=== PATIENT | female | born 1940 | race Caucasian/White ===

== ENCOUNTER 2020-11-30 13:53 | Observation (INO) ==
[2020-11-30] MEDS ORDERED: 0.9 % SODIUM CHLORIDE 1,000 ML IV ONE (14:08)
--- NOTE | 2020-11-30 14:18 | Emergency Department Note ---
Abdominal Pain HPI General Chief Complaint: Abdominal Pain Stated Complaint: Abd pain Time Seen by Provider: 11/30/20 13:55 Source: patient Mode of arrival: ambulatory Limitations: no limitations History of Present Illness HPI Narrative: Narrative: Patient presents emergency department for evaluation of several day history of intermittent epigastric pain that radiates to the lower abdomen. No associated nausea or vomiting. No fever. She states that eating food seems to make it worse. She has prior history of cholelithiasis. Patient states that she is symptomatic to the point where she has stopped eating because she has increased pain after oral intake, she has tried low-fat foods and is still symptomatic with this, this morning when she tried some orange juice she had recurrent pain.No other complaints. Related Data Home Medications Medication Instructions Recorded Confirmed ascorbic acid (vitamin C) 1,000 mg 1 g PO QDAY tab 11/11/18 11/30/20 tablet lisinopril 100 mg PO QAM 11/30/20 11/30/20 metformin 1,000 mg PO QAM 11/30/20 11/30/20 Previous Rx's Medication Instructions Recorded umeclidinium 62.5 mcg-vilanterol 1 inh INHALATION Q24H #180 each 01/24/20 25 mcg/actuation powdr for inhalation ergocalciferol (vitamin D2) 1,250 50,000 unit PO Q2W #6 cap 06/20/20 mcg (50,000 unit) capsule triamterene 37.5 1 cap PO QDAY #90 cap 08/28/20 mg-hydrochlorothiazide 25 mg capsule simvastatin 40 mg tablet 40 mg PO QPM #90 tab 10/25/20 ibandronate 150 mg tablet 150 mg PO QMONTH #3 tab 10/30/20 levothyroxine 100 mcg tablet 100 mcg PO .COMPLEX #90 tab 10/30/20 Allergies Allergy/AdvReac Type Severity Reaction Status Date / Time No Known Drug Intolerances Allergy Unknown Unknown Verified 11/30/20 13:53 Review of Systems ROS ROS Narrative: Narrative: As above, all other systems reviewed and negative. 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 limb, including hip (Chronic) Cholelithiasis (Chronic) History of colonic polyps (Chronic) Gastroesophageal reflux (Chronic) Diverticulitis of colon (Chronic) Hyperlipidemia (Chronic) Abdominal hernia (Chronic) Hypertension, essential (Chronic) Hypothyroidism, acquired (Chronic) Menopausal and postmenopausal disorder (Chronic) Osteopenia (Chronic) Osteoporosis (Chronic) Schatzki's ring (Chronic) Blindness, one eye (Chronic) History of hysterectomy (Chronic) History of esophagogastroduodenoscopy (Chronic 08/17/19) History of (Chronic) Medical History Abdominal hernia Annual physical exam Blindness, one eye right Cholelithiasis COPD (chronic obstructive pulmonary disease) Dermatitis Diabetes mellitus, type II Diverticulitis of colon Gastroesophageal reflux hx of stricture History of colonic polyps Hyperlipidemia Hypertension, essential Hypothyroidism, acquired Medicare annual wellness visit, subsequent Menopausal and postmenopausal disorder NOS Osteopenia Osteoporosis Prediabetes Schatzki's ring esophageal stenosis Squamous cell carcinoma of skin of right lower limb, including hip Tinea corporis Surgical History History of History of colonoscopy (08/16/13) History of esophagogastroduodenoscopy (08/17/19) 03/10/2013 History of hysterectomy 1983 [place] Family History Unknown Atherosclerosis of coronary artery Malignant neoplasm NOS Father Essential hypertension alive at 92 Mother , 60 Leukemia Social History Smoking Status: Former smoker Alcohol Intake Frequency: a few times a month Substance Use: does not use Exam Narrative Narrative: Narrative: Blood pressure 126/76, pulse 99, respirations 16, temperature 97, O2 sat 96%. General Limitations: no limitations Head Head: Present atraumatic and normocephalic Eye Eye: Present normal appearance, PERRL and EOMI ENT ENT: Present normal exam Adbominal Abdominal: Present soft and tenderness (Epigastric and right upper quadrant tenderness to palpation.); Absent distention, guarding and rebound Extremities Extremities: Present normal inspection Neurological Neurological: Present alert, oriented X3 and CN II-XII intact; Absent motor sensory deficit Psychiatric Psychiatric: Present normal affect and normal mood Skin Skin: Present warm (WNL) and dry Course Vital Signs Vital signs: Vital Signs Temperature 97.0 F 11/30/20 13:53 Pulse Rate 99 H 11/30/20 13:53 Respiratory Rate 16 11/30/20 13:53 Blood Pressure 126/76 11/30/20 13:53 Pulse Oximetry (%) 96 11/30/20 13:53 Temperature 97.0 F 11/30/20 13:53 Pulse Rate 79 11/30/20 17:01 Respiratory Rate 16 11/30/20 13:53 Blood Pressure 143/59 11/30/20 17:01 Pulse Oximetry (%) 99 11/30/20 17:01 [facility] MDM Narrative Medical decision making narrative: Narrative:Ultrasound per radiology showed significant cholelithiasis without cholecystitis. I spoke with Dr. Snyder on- call surgeon. Case reviewed in detail over the phone. Surgery offered to admit the patient for cholecystectomy or have the patient follow-up as an outpatient. These options were discussed with the patient and she feels too symptomatic to continue as an outpatient. Discussed findings with the patient. Her questions were answered. She is agreeable with the plan. Lab Data Result diagrams: 11/30/20 14:18 11/30/20 14:18 Labs: Lab Results 11/30/20 11/30/20 11/30/20 Range/Units 14:18 14:18 15:19 WBC 11.3 H (4.5-11.0) K/mcL RBC 5.38 (3.59-5.38) M/mcL Hgb 15.1 (11.2-15.7) g/dL Hct 44.3 (34.1-44.9) % MCV 82.3 (80.0-100.0) fL MCH 28.1 (26.0-34.0) pg MCHC 34.1 (31.0-36.0) g/dL RDW 13.4 (11.5-14.5) % Plt Count 399 (140-440) K/mcL MPV 9.9 (7.4-10.4) fL Neut % (Auto) 67.6 (38.0-78.0) % Lymph % (Auto) 19.9 (15.5-49.0) % Howard % (Auto) 11.7 (1.0-12.0) % Eos % (Auto) 0.4 (0.0-7.0) % Baso % (Auto) 0.4 (0.0-2.0) % Lymph # (Auto) 2.26 (1.50-4.80) K/mcL Howard # (Auto) 1.32 H (0.10-0.90) K/mcL Eos # (Auto) 0.04 (0.00-0.70) K/mcL Baso # (Auto) 0.04 (0.00-0.30) K/mcL Absolute Neutrophils 7.67 (1.80-8.00) K/mcL Sodium 130 L (133-145) mmol/L Potassium 3.8 (3.3-5.1) mmol/L Chloride 96 (96-108) mmol/L Carbon Dioxide 21 L (22-30) mmol/L Anion Gap 13.0 (8.0-16.0) BUN 9 (8-23) mg/dL Creatinine 0.8 (0.6-1.1) mg/dL GFR Calculation 70 Glucose 98 (70-105) mg/dL Calcium 9.9 (8.6-10.4) mg/dL Total Bilirubin 0.6 (0.1-1.0) mg/dL AST 14 (<32) U/L ALT 12 (<40) U/L Alkaline Phosphatase 82 (39-117) U/L Total Protein 7.4 (5.9-8.4) gm/dL Albumin 4.1 (3.2-5.2) gm/dL Globulin 3.3 (2.2-3.7) gm/dL Albumin/Globulin Ratio 1.2 (1.0-2.3) Lipase 23 (7-60) U/L Urine Color Yellow Urine Appearance Clear (Clear) Urine pH 7.0 (5.0-9.0) Ur Specific [place] 1.005 (1.000-1.035) Urine Protein Negative (Negative) mg/dL Urine Glucose (UA) Negative (Negative) mg/dL Urine Ketones 20 A (Negative) mg/dL Urine Occult Blood Negative (Negative) mg/dL Urine Nitrate Negative (Negative) Urine Bilirubin Negative (Negative) mg/dL Urine Urobilinogen Negative mg/dL Ur Leukocyte Esterase 250 A (Negative) /ug Urine RBC < 1 (0-3) /hpf Urine WBC 7 H (0-4) /hpf Ur Squamous Epith Cells 2 (0-4) /hpf Urine Bacteria None (0) /hpf Ur Culture Indicated? No Discharge Plan Patient/Caregiver Discharge Instructions Pt seen by [employer]ER/PA only: No Clinical Impression: Cholelithiasis Patient Disposition: Xfer As Inpt ([facility]) Follow up with: Nik Ferguson MD [Primary Care Provider] - Prescriptions: No Action umeclidinium 62.5 mcg-vilanterol 25 mcg/actuation powdr for inhalation 62.5-25 mcg/actuation blister with device 1 inh INHALATION Q24H Qty: 180 RF: 1 ergocalciferol (vitamin D2) [Vitamin D2] 1,250 mcg (50,000 unit) capsule 50,000 unit PO Q2W Qty: 6 RF: 1 triamterene-hydrochlorothiazid 37.5-25 mg capsule 1 cap PO QDAY Qty: 90 RF: 1 simvastatin [Zocor] 40 mg tablet 40 mg PO QPM Qty: 90 RF: 1 ibandronate [Boniva] 150 mg tablet 150 mg PO QMONTH Qty: 3 RF: 1 levothyroxine [Levoxyl] 100 mcg tablet 100 mcg PO .COMPLEX Qty: 90 RF: 1 ascorbic acid (vitamin C) 1,000 mg tablet 1 g PO QDAY RF: 0 lisinopril 10 mg tablet 100 mg PO QAM RF: 0 metformin 500 mg tablet extended release 24hr 1,000 mg PO QAM RF: 0
[2020-11-30 14:55] LABS: Basophils # (Auto) 0.04 K/mcL (0.00-0.30); Basophils % (Auto) 0.4 % (0.0-2.0); Eosinophils # (Auto) 0.04 K/mcL (0.00-0.70); Eosinophils % (Auto) 0.4 % (0.0-7.0); Hematocrit 44.3 % (34.1-44.9); Hemoglobin 15.1 g/dL (11.2-15.7); Lymphocytes # (Auto) 2.26 K/mcL (1.50-4.80); Lymphocytes % (Auto) 19.9 % (15.5-49.0); Mean Cell Volume 82.3 fL (80.0-100.0); Mean Corpuscular HGB Conc 34.1 g/dL (31.0-36.0); Mean Platelet Volume 9.9 fL (7.4-10.4); Monocytes # (Auto) 1.32 K/mcL (0.10-0.90); Monocytes % (Auto) 11.7 % (1.0-12.0); Neutrophils % (Auto) 67.6 % (38.0-78.0); Platelet Count 399 K/mcL (140-440); RBC 5.38 M/mcL (3.59-5.38); Red Cell Distribution Width 13.4 % (11.5-14.5); WBC 11.3 K/mcL (4.5-11.0)
[2020-11-30 15:15] LABS: ALT/SGPT 12 U/L (<40); AST/SGOT 14 U/L (<32); Albumin 4.1 gm/dL (3.2-5.2); Albumin/Globulin Ratio 1.2 (1.0-2.3); Alkaline Phosphatase 82 U/L (39-117); Bilirubin,Total 0.6 mg/dL (0.1-1.0); Blood Urea Nitrogen 9 mg/dL (8-23); Calcium 9.9 mg/dL (8.6-10.4); Carbon Dioxide 21 mmol/L (22-30); Chloride 96 mmol/L (96-108); Globulin 3.3 gm/dL (2.2-3.7); Glomerular Filtration Rate 70; Glucose 98 mg/dL (70-105)
--- NOTE | 2020-11-30 16:00 | Ultrasound Report ---
CLINICAL INFORMATION: epigastric and RUQ abd pain COMPARISON: None. FINDINGS: The liver is normal in size and echotexture. There is a 6 mm cyst in the right hepatic lobe otherwise no other focal hepatic lesions. Gallbladder is packed with stones. The gallbladder wall is normal in thickness. The common bile duct normal at 4 mm. Pancreas unremarkable. No free fluid IMPRESSION: Multiple stones packing the gallbladder. No evidence of cholecystitis. Common bile duct normal. Interpreted and Authenticated by: Kade Gillette 11/30/20
[2020-11-30 16:05] LABS: Appearance,Urine CLEAR (Clear); Bilirubin,Urine Negative (Negative); Color,Urine YELLOW; Culture Indicated,Urine No; Glucose,Urine (UA) Negative (Negative); Ketones,Urine 20 mg/dL (Negative); Leukocyte Esterase,Urine 250 /ug (Negative); Nitrate,Urine Negative (Negative); Protein,Urine Negative (Negative); Specific Gravity,Urine 1.005 (1.000-1.035); Urine Blood Negative (Negative); Urine RBC < 1 /hpf (0-3); Urine Squamous Epithelial Cell 2 /hpf (0-4); Urine WBC 7 /hpf (0-4); Urobilinogen,Urine Negative
[2020-11-30] MEDS ORDERED: ONDANSETRON 4 MG/2 ML VIAL IV PRN ×2 (17:25)
[2020-11-30] MEDS ORDERED: HYDROmorphone 0.5 MG/0.5 ML SYRINGE IV PRN (17:25)
--- NOTE | 2020-11-30 17:25 | General Surg History&Physical ---
HPI History of Present Illness Patient information: Note initiated : 11/30/20 at 5:21 pm Service Date, if different from initiated Date: [] Patient: Doris Kong a 80 y/o F admitted on for Abd pain. Chief Complaint: [] Chief complaint: Preop: Abdominal pain History of present illness: Ms. Kong is a 80 year old F who presents to the emergency room with 2 to 3-day history of epigastric and right upper quadrant abdominal pain. She denies any prior history of similar sort of pain. She reports that initially it was with fatty foods and then any foods that she eats over the last several days has caused the pain. She has had decreased p.o. intake, no nausea or emesis. She has no fevers or chills. She denies travel or sick contacts over the last few months. On work-up in the emergency room she has cholelithiasis, the emergency room has been unable to get her pain-free. Review of Systems Review of systems: All systems are reviewed, negative other than above PFSH PFSH All Active Problems Muscle strain (Acute) Annual physical exam (Acute) Tinea corporis (Acute) Dermatitis (Acute) Medicare annual wellness visit, subsequent (Acute) Prediabetes (Chronic) Upper respiratory infection (Chronic) COPD (chronic obstructive pulmonary disease) (Chronic) Influenza (Chronic) Squamous cell carcinoma of skin of right lower limb, including hip (Chronic) Cholelithiasis (Chronic) History of colonic polyps (Chronic) Gastroesophageal reflux (Chronic) Diverticulitis of colon (Chronic) Hyperlipidemia (Chronic) Abdominal hernia (Chronic) Hypertension, essential (Chronic) Hypothyroidism, acquired (Chronic) Menopausal and postmenopausal disorder (Chronic) Osteopenia (Chronic) Osteoporosis (Chronic) Schatzki's ring (Chronic) Blindness, one eye (Chronic) History of hysterectomy (Chronic) History of esophagogastroduodenoscopy (Chronic 08/17/19) History of (Chronic) Medical History Abdominal hernia Annual physical exam Blindness, one eye right Cholelithiasis COPD (chronic obstructive pulmonary disease) Dermatitis Diabetes mellitus, type II Diverticulitis of colon Gastroesophageal reflux hx of stricture History of colonic polyps Hyperlipidemia Hypertension, essential Hypothyroidism, acquired Medicare annual wellness visit, subsequent Menopausal and postmenopausal disorder NOS Osteopenia Osteoporosis Prediabetes Schatzki's ring esophageal stenosis Squamous cell carcinoma of skin of right lower limb, including hip Tinea corporis Surgical History History of History of colonoscopy (08/16/13) History of esophagogastroduodenoscopy (08/17/19) 03/10/2013 History of hysterectomy 1983 [place] Family History Unknown Atherosclerosis of coronary artery Malignant neoplasm NOS Father Essential hypertension alive at 92 Mother , 60 Leukemia Social History marital status: education level: college occupational status: retired other: 3 children 6 grandchildren alcohol intake frequency: a few times a month substance use type: does not use MEDS/ALLERGIES Home Medications and Allergies Home Medications Medication Instructions Recorded Confirmed Type ascorbic acid (vitamin C) 1,000 mg 1 g PO QDAY tab 11/11/18 11/30/20 History tablet umeclidinium 62.5 mcg-vilanterol 1 inh INHALATION Q24H #180 each 01/24/20 11/30/20 Rx 25 mcg/actuation powdr for inhalation ergocalciferol (vitamin D2) 1,250 50,000 unit PO Q2W #6 cap 06/20/20 11/30/20 Rx mcg (50,000 unit) capsule triamterene 37.5 1 cap PO QDAY #90 cap 08/28/20 11/30/20 Rx mg-hydrochlorothiazide 25 mg capsule simvastatin 40 mg tablet 40 mg PO QPM #90 tab 10/25/20 11/30/20 Rx ibandronate 150 mg tablet 150 mg PO QMONTH #3 tab 10/30/20 11/30/20 Rx levothyroxine 100 mcg tablet 100 mcg PO .COMPLEX #90 tab 10/30/20 11/30/20 Rx lisinopril 100 mg PO QAM 11/30/20 11/30/20 History metformin 1,000 mg PO QAM 11/30/20 11/30/20 History Allergies Allergy/AdvReac Type Severity Reaction Status Date / Time No Known Drug Intolerances Allergy Unknown Unknown Verified 11/30/20 13:53 Physical Examination Vital Signs Vital signs: Temp Pulse Resp BP Pulse Ox 97.0 F 79 16 143/59 99 11/30/20 13:53 11/30/20 17:01 11/30/20 13:53 11/30/20 17:01 11/30/20 17:01 General physical appearance General physical exam: well developed, well nourished and no distress Eyes Eye exam: PERRL and normal ocular movement ENT ENT exam: normal pinna, normal nares, normal mucosa, no hearing loss and no congestion Head Head exam IM: Present atraumatic and normocephalic Neck Neck exam: no masses, no bruits, trachea midline, no lymphadenopathy and no venous distension Cardiovascular Cardiovascular exam IM: Present normal rate and rhythm Respiratory Respiratory exam: normal expansion, normal respiratory effort, clear to percussion and clear to auscultation Abdomen Abdomen: Present soft, tender (RUQ) and bowel sounds; Absent wound, masses, guarding and rebound Hernia: Present none Genitourinary Genitourinary (Female): Present normal external genitalia Rectum Rectum: Present normal sphincter tone, no hemorrhoids, no tenderness, no masses and no bleeding Integumentary Integumentary: Present no rash, no growths and no abnormal pigmentation Neurologic Neurologic: Present normal coordination and normal sensation Musculoskeletal Musculoskeletal: Present normal gait and normal posture Psychiatric Psychiatric: Present oriented to time, oriented to person, oriented to place, speech is normal and memory intact Results Labs Result diagrams: 11/30/20 14:18 11/30/20 14:18 Labs: Abnormal lab results 11/30/20 11/30/20 11/30/20 Range/Units 14:18 14:18 15:19 WBC 11.3 H (4.5-11.0) K/mcL [place] # (Auto) 1.32 H (0.10-0.90) K/mcL Sodium 130 L (133-145) mmol/L Carbon Dioxide 21 L (22-30) mmol/L Urine Ketones 20 A (Negative) mg/dL Ur Leukocyte Esterase 250 A (Negative) /ug Urine WBC 7 H (0-4) /hpf Diabetes panel 11/30/20 Range/Units 14:18 Sodium 130 L (133-145) mmol/L Potassium 3.8 (3.3-5.1) mmol/L Chloride 96 (96-108) mmol/L Carbon Dioxide 21 L (22-30) mmol/L BUN 9 (8-23) mg/dL Creatinine 0.8 (0.6-1.1) mg/dL Glucose 98 (70-105) mg/dL Calcium 9.9 (8.6-10.4) mg/dL AST 14 (<32) U/L ALT 12 (<40) U/L Alkaline Phosphatase 82 (39-117) U/L Total Protein 7.4 (5.9-8.4) gm/dL Albumin 4.1 (3.2-5.2) gm/dL Calcium panel 11/30/20 Range/Units 14:18 Calcium 9.9 (8.6-10.4) mg/dL Albumin 4.1 (3.2-5.2) gm/dL Pituitary panel 11/30/20 Range/Units 14:18 Sodium 130 L (133-145) mmol/L Potassium 3.8 (3.3-5.1) mmol/L Chloride 96 (96-108) mmol/L Carbon Dioxide 21 L (22-30) mmol/L BUN 9 (8-23) mg/dL Creatinine 0.8 (0.6-1.1) mg/dL Glucose 98 (70-105) mg/dL Calcium 9.9 (8.6-10.4) mg/dL Adrenal panel 11/30/20 Range/Units 14:18 Sodium 130 L (133-145) mmol/L Potassium 3.8 (3.3-5.1) mmol/L Chloride 96 (96-108) mmol/L Carbon Dioxide 21 L (22-30) mmol/L BUN 9 (8-23) mg/dL Creatinine 0.8 (0.6-1.1) mg/dL Glucose 98 (70-105) mg/dL Calcium 9.9 (8.6-10.4) mg/dL Total Bilirubin 0.6 (0.1-1.0) mg/dL AST 14 (<32) U/L ALT 12 (<40) U/L Alkaline Phosphatase 82 (39-117) U/L Total Protein 7.4 (5.9-8.4) gm/dL Albumin 4.1 (3.2-5.2) gm/dL All other labs normal. A/P Assessment and plan (1) Cholelithiasis: Status: Chronic Narrative A/P Narrative: This is a pleasant 80-year-old female who presents with symptomatic cholelithiasis with intractable abdominal pain. Multiple attempts to get her pain-free in the emergency room have been unsuccessful. Risk, benefits, alternatives to treatment discussed with the patient at length. She verbalizes understanding and all of her questions are answered. She desires to continue with surgery. Plan: Admit, n.p.o. tonight. We will take to the operating room at next available OR time for a laparoscopic cholecystectomy. Thank you very much for this consultation. Time Spent With Patient Time: Total time spent is greater than 50% in coordination of care (as documented) at patient's floor/unit and/or counseling patient:
[2020-11-30] MEDS ORDERED: SENNOSIDES 1 TABLET PO SCH (21:00)
[2020-11-30] MEDS: LACTATED RINGERS 1,000 ML IV SCH (23:16)
[2020-11-30] MEDS: 0.9 % SODIUM CHLORIDE 10 ML SYRINGE IV SCH (23:17)
[2020-11-30] MEDS: DOCUSATE SODIUM 100 MG CAPSULE PO SCH (23:17)
[2020-12-01] MEDS: LACTATED RINGERS 1,000 ML IV SCH (05:49)
[2020-12-01] MEDS: 0.9 % SODIUM CHLORIDE 10 ML SYRINGE IV SCH ×2 (05:49→13:17)
[2020-12-01] MEDS ORDERED: IPRATROPIUM/ALBUTEROL 3 ML AMPUL.NEB NEB PRN ×2 (07:00→08:34)
[2020-12-01] MEDS ORDERED: SCOPOLAMINE 1 PATCH PATCH TOPICAL PRN (07:00)
[2020-12-01] MEDS ORDERED: PROPOFOL 200 MG/20 ML VIAL IV ONE (08:05)
[2020-12-01] MEDS ORDERED: SUGAMMADEX SODIUM 200 MG/2 ML VIAL IV ONE (08:05)
[2020-12-01] MEDS ORDERED: LIDOCAINE HCL/PF 100 MG/5 ML SYRINGE IV ONE (08:05)
[2020-12-01] MEDS ORDERED: fentaNYL 100 MCG/2 ML VIAL IV ONE (08:05)
[2020-12-01] MEDS ORDERED: ROCURONIUM 10 MG/ML ML IV ONE (08:05)
[2020-12-01] MEDS ORDERED: DEXAMETHASONE 10 MG/ML VIAL ONE (08:05)
[2020-12-01] MEDS ORDERED: GLYCOPYRROLATE 0.2 MG/ML VIAL IV ONE (08:05)
[2020-12-01] MEDS ORDERED: ONDANSETRON 4 MG/2 ML VIAL ONE (08:05)
[2020-12-01] MEDS ORDERED: KETAMINE 50 MG/ML Syringe (ANEST) IV ONE (08:05)
[2020-12-01] MEDS ORDERED: MAGNESIUM SULFATE 2 GM/50 ML BAG IV ONE (08:05)
[2020-12-01] MEDS ORDERED: SUCCINYLCHOLINE 20 MG/ML ML IV ONE (08:05)
[2020-12-01] MEDS: DOCUSATE SODIUM 100 MG CAPSULE PO SCH (08:07)
[2020-12-01] MEDS ORDERED: LIDOCAINE W/EPI 1% 20 ML VIAL IJ ONE (08:16)
[2020-12-01] MEDS ORDERED: BUPIVACAINE PF 0.5% 10 ML VIAL IJ ONE (08:16)
[2020-12-01] MEDS: LIDOCAINE 1% 20 ML, BUPIVACAINE W/EPI 0.5% 20 ML SQ ONE ×2 (08:21→11:04)
[2020-12-01] MEDS ORDERED: ceFAZolin 2 GM in DEXTROSE 5% IN WATER 50 ML IV SCH (08:30)
[2020-12-01] MEDS ORDERED: METHOCARBAMOL 1,000 MG/10 ML VIAL IV PRN (08:34)
[2020-12-01] MEDS ORDERED: FLUMAZENIL 0.1 MG/ML ML IV PRN (08:34)
[2020-12-01] MEDS ORDERED: diphenhydrAMINE 50 MG/ML VIAL IV PRN (08:34)
[2020-12-01] MEDS ORDERED: NALOXONE HCL 0.4 MG/ML VIAL IV PRN (08:34)
[2020-12-01] MEDS ORDERED: PROMETHAZINE 25 MG/ML VIAL IV PRN (08:34)
[2020-12-01] MEDS ORDERED: ACETAMINOPHEN 1,000 MG/100 ML BAG IV ONE (08:34)
[2020-12-01] MEDS ORDERED: METOPROLOL TARTRATE 5 MG/5 ML VIAL IV PRN (08:34)
[2020-12-01] MEDS ORDERED: fentaNYL 100 MCG/2 ML VIAL IV PRN (08:34)
[2020-12-01] MEDS ORDERED: ATROPINE SULFATE 0.4 MG/ML VIAL IV PRN (08:34)
[2020-12-01] MEDS ORDERED: ONDANSETRON 4 MG/2 ML VIAL IV PRN (08:34)
[2020-12-01] MEDS ORDERED: ePHEDrine 50 MG/ML AMPUL IV PRN (08:34)
[2020-12-01] MEDS ORDERED: HYDROmorphone 0.5 MG/0.5 ML SYRINGE IV PRN (08:34)
[2020-12-01] MEDS ORDERED: MEPERIDINE 25 MG/ML VIAL IV PRN (08:34)
[2020-12-01] MEDS ORDERED: LACTATED RINGERS 1,000 ML IV SCH (08:45)
--- NOTE | 2020-12-01 09:08 | Operative Note ---
Brief Operative Note Date of procedure: 12/01/20 Pre-op diagnosis: Symptomatic cholelithiasis Post-op diagnosis: other (Acute cholecystitis) Procedure: Laparoscopic cholecystectomy Anesthesia: GETA Findings: Cholelithiasis and signs consistent with acute cholecystitis Complications: none Surgeon: Eliu Snyder Estimated blood loss (cc): 10 Specimens Removed/Pathology: other (Gallbladder and contents) Condition: stable Disposition: PACU Operative Note Operative Note: After risk benefits and alternatives to the procedure were discussed with the patient at length she verbalized understanding and desire to continue with the procedure. Patient was taken main operating room placed upon the operative table. General anesthesia was induced over endotracheal tube. Patient was prepped and draped in the standard sterile surgical fashion. Surgical timeout was taken to verify patient and procedure being performed. 1% lidocaine half percent Marcaine was used for local anesthesia throughout the case. Left upper quadrant incision was made, a varies needle was inserted and the abdominal cavity was insufflated with carbon dioxide. The abdominal cavity was then entered under direct vision using a 5 mm Optiview trocar through a supraumbilical incision. Visual inspection revealed no injuries and the varies needle was removed under direct vision. 12 mm upper midline trocar, 5 mm right upper quadrant, and a second 5 mm right upper quadrant trochars were all placed under direct vision. Patient was placed in a head up right side up position. Attention was turned to the gallbladder which was acutely inflamed, the peritoneal attachments were taken down to pedunculated the gallbladder in standard fashion. The triangle FABIAN was carefully dissected free with blunt dissection. Once a critical view of safety was clearly identified the cystic duct and cystic artery were surgically clipped and transected. The gallbladder was removed from the gallbladder fossa using electrocautery this placed in Endo Catch bag removed through the upper midline incision and passed off the field for surgical pathology. Attention was turned back to the gallbladder fossa which was inspected for hemostasis. The upper midline fascial defect was then reapproximated with a interrupted 0 Vicryl suture. CO2 and trochars were removed from the abdominal cavity under direct vision. Trocar sites were inspected for hemostasis. Skin edges were closed with interrupted 4 Monocryl sutures skin glue dressings were applied. Patient was then awakened from anesthesia transported postanesthesia care unit awake alert in good condition.
[2020-12-01] MEDS ORDERED: ACETAMINOPHEN 325 MG TABLET PO PRN (09:14)
[2020-12-01] MEDS ORDERED: oxyCODONE HCL 5 MG TABLET PO PRN (09:14)
--- NOTE | 2020-12-01 09:14 | Discharge Summary ---
Discharge Provider Provider Patient information: Note initiated : 12/01/20 at 9:14 am Service Date, if different from initiated Date: [] Patient: Doris Kong 80 y/o F admitted on 11/30/20 for Abd pain. Chief Complaint: [] Date of admission: 11/30/20 20:33 Discharge date: 12/01/20 Primary care physician: Nik Ferguson MD Consults: 11/30/20 16:57 Consult to Physician [CONS] Stat Comment: Consulting Provider: Eliu Snyder Reason For Exam: Physician to Consult COURSE Hospital Course Hospital course: Patient was admitted for and underwent an uneventful laparoscopic cholecystectomy. She tolerated procedure well. Discharge diagnosis: Status post cholecystectomy Time Spent with Patient Time attestation: Total time spent providing and/or coordinating discharge services: Physical Examination Vital Signs Vital signs: Temp Pulse Resp BP Pulse Ox 97.2 F 75 16 137/81 95 12/01/20 07:09 12/01/20 07:09 12/01/20 07:09 12/01/20 07:09 12/01/20 07:09 Discharge Plan Patient/Caregiver Discharge Instructions Activity: increase activity as tolerated Diet: Regular Diet Activity Restrictions/Additional Instructions: Resume normal activity as tolerated, no weight lifting restrictions. May resume normal bathing starting today. Follow-up with me in 2 to 3 weeks. Prescriptions: New ibuprofen 800 mg tablet 800 mg PO TID PRN (Reason: pain) Qty: 60 RF: 0 acetaminophen [Tylenol 8 Hour] 650 mg tablet extended release 650 mg PO Q8H PRN (Reason: pain) Qty: 60 RF: 0 oxycodone 5 mg tablet 5 mg PO Q6H PRN (Reason: pain) Qty: 5 RF: 0 Continued umeclidinium 62.5 mcg-vilanterol 25 mcg/actuation powdr for inhalation 62.5-25 mcg/actuation blister with device 1 inh INHALATION Q24H Qty: 180 RF: 1 ergocalciferol (vitamin D2) [Vitamin D2] 1,250 mcg (50,000 unit) capsule 50,000 unit PO Q2W Qty: 6 RF: 1 triamterene-hydrochlorothiazid 37.5-25 mg capsule 1 cap PO QDAY Qty: 90 RF: 1 simvastatin [Zocor] 40 mg tablet 40 mg PO QPM Qty: 90 RF: 1 ibandronate [Boniva] 150 mg tablet 150 mg PO QMONTH Qty: 3 RF: 1 levothyroxine [Levoxyl] 100 mcg tablet 100 mcg PO .COMPLEX Qty: 90 RF: 1 ascorbic acid (vitamin C) 1,000 mg tablet 1 g PO QDAY RF: 0 lisinopril 10 mg tablet 100 mg PO QAM RF: 0 metformin 500 mg tablet extended release 24hr 1,000 mg PO QAM RF: 0 Follow Up Plan Follow up with: Eliu Snyder MD [Physician] - Nik Ferguson MD [Primary Care Provider] - Patient Disposition: Home, Self-Care Hospital Course: Patient was admitted with intractable pain from symptomatic cholelithiasis, she was made n.p.o. and taken to the operating room for an uneventful laparoscopic cholecystectomy. Discharge Orders: Discharge Order (Routine); Ordered 12/01/20 Ordered By: Eliu Snyder Pending Pending Pending: Resuscitation Status Resuscitate (Full Code) Diet NPO Diet (NOW) Start ThuDec 01 1727 Docusate Sodium (Docusate Sodium 100 Mg Capsule) 100 mg PO BID [facility] Last Admin: 12/01/20 08:07 Dose: Not Given Documented by: Admin: 11/30/20 23:17 Dose: Not Given Documented by: MADDY Lactated Ringer's (Lactated Ringers) 1,000 mls @ 84 mls/hr IV .[id number] [facility] Last Admin: 12/01/20 05:49 Dose: Not Given Documented by: Admin: 11/30/20 23:16 Dose: 84 mls/hr Documented by: MADDY Cefazolin Sodium 2 gm/ (Dextrose) 50 mls @ 100 mls/hr IV PREOP SHRUTHI; Protocol Stop: 12/01/20 17:00 Last Infusion: 12/01/20 08:25 Dose: 0 mls/hr Documented by: Admin: 12/01/20 08:20 Dose: 100 mls/hr Documented by: SHAMIR Lactated Ringer's (Lactated Ringers) 1,000 mls @ 20 mls/hr IV .Q24H SHRUTHI Stop: 12/01/20 10:35 Last Admin: 12/01/20 08:59 Dose: 20 mls/hr Documented by: LEWIS Weeksna (Sennosides 1 Tablet) 2 tab PO HS SHRUTHI Last Admin: 11/30/20 23:17 Dose: Not Given Documented by: MADDY Sodium Chloride (0.9 % Sodium Chloride 10 Ml Syringe) 10 ml IV Q8 SHRUTHI Last Admin: 12/01/20 05:49 Dose: Not Given Documented by: Admin: 11/30/20 23:17 Dose: Not Given Documented by: MADDY Shift Summary 12/01/20 05:04 Shift Summary by Tiffanie Moran ADMIT: 11/30 @ 2032 via w/c from ED, IP OBS status. DX: RUQ pain for 2 days, increasing after eating along w/ nausea. Cholelithiasis on CT. Date of Surgery: Today, 12/01, Laparoscopic Cholecycstectomy Pertinent Medical Hx/Issues: COPD, HTN, hypothyroid, Prediabetic - metformin, osteoporosis. Vital Signs with Trends: VSS on RA Diet: NPO after MN Amb status: Independent in rm. Neuro: A&OX4. Meds (abo, pain, BP, etc): Lines/Tubes: LR @ 84/hr into RAC. Lab/Rad results: Date of last BM: Voiding per toilet, no BM this shift. Expected date of discharge: Pt expects to go home today w/ . Discharge Plan (needs, disposition, etc): Initialized on 12/01/20 05:04 - END OF NOTE
--- NOTE | 2020-12-04 10:42 | Surgical Pathology Report ---
Histology Microscopic Diagnosis Specimen A- GALLBLADDER, CHOLECYSTECTOMY: --- CHRONIC CHOLECYSTITIS WITH CHOLELITHIASIS. (RLF) Procedural Impression Cholelithiasis. Gross Description Received in formalin labeled gallbladder, is a 6.6 x 2.4 x 2.1 cm pink-hart gallbladder specimen. There are two metal clamps present, one of which is on the cystic duct. The serosa is smooth and glistening with approximately 25% rough and brown-hart. The mucosa is mostly hoyos-hart smooth and fibrous with approximately 10% having velvety green-hart mucosa near the cystic duct. Within the gallbladder specimen there are multiple brown-hart irregular stones and stone fragments ranging in size from 0.3 up to 1.5 cm in greatest dimension. Loss Control Technician portions submitted in one cassette. (KGW:adj) Electronically Signed Gisell Zapien MD, FCAP Electronically Signed 12/04/2020 10:41
== END 2020-12-01 14:40 | disposition home or self-care (01) ==
LOC: MEDSUR 13:53 → ED 13:53 → MEDSUR 20:30
PROVIDERS: ADMIT Surgery; ATTEND Surgery

== ENCOUNTER 2024-03-22 06:09 | Inpatient (IN) ==
[2024-03-17 14:33] LABS: Basophils # (Auto) 0.03 K/mcL (0.00-0.30); Basophils % (Auto) 0.3 % (0.0-2.0); Eosinophils # (Auto) 0.26 K/mcL (0.00-0.70); Eosinophils % (Auto) 2.7 % (0.0-7.0); Hematocrit 42.8 % (34.1-44.9); Hemoglobin 13.8 g/dL (11.2-15.7); Mean Cell Volume 85.4 fL (80.0-100.0); Mean Corpuscular HGB Conc 32.2 g/dL (31.0-36.0); Mean Platelet Volume 8.5 fL (8.8-12.5); Monocytes # (Auto) 0.87 K/mcL (0.10-0.90); Monocytes % (Auto) 9.1 % (1.0-12.0); Neutrophils % (Auto) 61.7 % (38.0-78.0); Platelet Count 361 K/mcL (140-440); RBC 5.01 M/mcL (3.59-5.38); Red Cell Distribution Width 13.9 % (11.5-14.5); WBC 9.6 K/mcL (4.5-11.0)
[2024-03-17 14:48] LABS: ALT/SGPT 11 U/L (<40); AST/SGOT 19 U/L (<32); Albumin 4.3 gm/dL (3.2-5.2); Albumin/Globulin Ratio 1.5 (1.0-2.3); Alkaline Phosphatase 76 U/L (39-117); Bilirubin,Total 0.2 mg/dL (0.1-1.0); Blood Urea Nitrogen 18 mg/dL (8-23); Calcium 9.8 mg/dL (8.6-10.4); Carbon Dioxide 24 mmol/L (22-30); Chloride 96 mmol/L (96-108); Globulin 2.9 gm/dL (2.2-3.7); Glomerular Filtration Rate 85; Glucose 94 mg/dL (70-105); Potassium 4.1 mmol/L (3.3-5.1); Sodium 132 mmol/L (133-145)
[2024-03-17 17:56] LABS: Estimated Average Glucose(eAG) 103 mg/dL; Hemoglobin A1C 5.2 % Hgb (4.0-6.0)
[2024-03-22] MEDS: PIPERACILLIN SODIUM/TAZOBACTAM 3.375 GM in DEXTROSE 5% IN WATER 50 ML IV SCH (07:04)
[2024-03-22] MEDS ORDERED: fentaNYL 100 MCG/2 ML VIAL ONE ×3 (07:07→11:19)
[2024-03-22] MEDS ORDERED: PROPOFOL 200 MG/20 ML VIAL IV ONE (07:07)
[2024-03-22] MEDS ORDERED: KETAMINE 50 MG/ML ML ONE (07:08)
[2024-03-22] MEDS ORDERED: ONDANSETRON 4 MG/2 ML VIAL ONE (07:10)
[2024-03-22] MEDS ORDERED: GLYCOPYRROLATE 0.2 MG/ML VIAL IV ONE (07:10)
[2024-03-22] MEDS ORDERED: DEXAMETHASONE 10 MG/ML VIAL ONE (07:10)
[2024-03-22] MEDS ORDERED: LIDOCAINE 2% PF 5 ML VIAL ONE (07:10)
[2024-03-22] MEDS ORDERED: FAMOTIDINE/PF 20 MG/2 ML VIAL IV ONE (07:11)
[2024-03-22] MEDS ORDERED: ROCURONIUM 10 MG/ML ML IV ONE ×2 (07:12→08:03)
[2024-03-22] MEDS ORDERED: MAGNESIUM SULFATE 2 GM/50 ML BAG IV ONE (07:58)
[2024-03-22] MEDS ORDERED: PHENYLephrine 1 MG/10 ML SYRINGE (ANEST) ONE ×2 (08:02→11:03)
[2024-03-22] MEDS ORDERED: VASOPRESSIN 20 UNIT/ML VIAL ONE (08:09)
[2024-03-22] MEDS ORDERED: SUGAMMADEX SODIUM 200 MG/2 ML VIAL IV ONE (08:12)
[2024-03-22] MEDS ORDERED: 0.9 % SODIUM CHLORIDE 100 ML IV ONE (08:14)
[2024-03-22] MEDS ORDERED: methylPREDNISolone SOD SUCC 125 MG/2 ML VIAL ONE (08:58)
[2024-03-22] MEDS ORDERED: IPRATROPIUM/ALBUTEROL 3 ML AMPUL.NEB NEB PRN (11:16)
[2024-03-22] MEDS ORDERED: LACTATED RINGERS 250 ML IV PRN (11:16)
[2024-03-22] MEDS ORDERED: METHOCARBAMOL 1,000 MG/10 ML VIAL IV PRN (11:16)
[2024-03-22] MEDS ORDERED: ONDANSETRON 4 MG/2 ML VIAL IV PRN ×2 (11:16→11:50)
[2024-03-22] MEDS ORDERED: NALOXONE HCL 0.4 MG/ML VIAL IV PRN (11:16)
[2024-03-22] MEDS ORDERED: BENZOCAINE/MENTHOL 1 LOZENGE PO PRN (11:16)
[2024-03-22] MEDS: BACITRACIN TOPICAL OINT 15 GM TUBE TOPICAL ONE (11:25)
[2024-03-22] MEDS: ACETAMINOPHEN 1,000 MG/100 ML BAG IV ONE (11:42)
[2024-03-22] MEDS ORDERED: PIPERACILLIN SODIUM/TAZOBACTAM 3.375 GM in DEXTROSE 5% IN WATER 100 ML IV SCH (12:00)
[2024-03-22] MEDS ORDERED: PIPERACILLIN SODIUM/TAZOBACTAM 4.5 GM in DEXTROSE 5% IN WATER 50 ML IV SCH (12:00)
[2024-03-22] MEDS: fentaNYL 100 MCG/2 ML VIAL IV PRN (12:15)
[2024-03-22] MEDS ORDERED: ALBUTEROL SULFATE 2.5 MG/3 ML NEBULIZER NEB PRN (12:16)
[2024-03-22] MEDS: HYDROmorphone 0.5 MG/0.5 ML SYRINGE IV PRN ×2 (12:27→13:30)
[2024-03-22] MEDS: DEXTROSE 5%-LR 1,000 ML IV SCH (12:46)
[2024-03-22] MEDS: LACTATED RINGERS 1,000 ML IV SCH (12:47)
[2024-03-22] MEDS: 0.9 % SODIUM CHLORIDE 250 ML IV SCH (12:54)
[2024-03-22] MEDS: PIPERACILLIN SODIUM/TAZOBACTAM 4.5 GM in DEXTROSE 5% IN WATER 100 ML IV SCH (13:18)
[2024-03-22] MEDS: ACETAMINOPHEN 650 MG/65 ML BAG IV SCH (14:50)
[2024-03-22] MEDS: PANTOPRAZOLE 40 MG VIAL IV SCH (16:53)
[2024-03-23 06:24] LABS: Hematocrit 38.3 % (34.1-44.9); Hemoglobin 12.7 g/dL (11.2-15.7); Mean Cell Volume 85.3 fL (80.0-100.0); Mean Corpuscular HGB Conc 33.2 g/dL (31.0-36.0); Platelet Count 325 K/mcL (140-440); RBC 4.49 M/mcL (3.59-5.38); Red Cell Distribution Width 14.1 % (11.5-14.5); WBC 22.1 K/mcL (4.5-11.0)
[2024-03-23 07:20] LABS: Blood Urea Nitrogen 9 mg/dL (8-23); Calcium 8.8 mg/dL (8.6-10.4); Carbon Dioxide 24 mmol/L (22-30); Chloride 100 mmol/L (96-108); Glomerular Filtration Rate 85; Glucose 121 mg/dL (70-105); Potassium 3.5 mmol/L (3.3-5.1); Sodium 136 mmol/L (133-145)
[2024-03-23] MEDS: BENZOCAINE ONE 20% 1 SPRAY TOPICAL PRN ×2 (17:23→19:32)
[2024-03-23] MEDS: PIPERACILLIN SODIUM/TAZOBACTAM 3.375 GM in DEXTROSE 5% IN WATER 100 ML IV SCH (21:30)
[2024-03-24] MEDS: BENZOCAINE/MENTHOL 1 LOZENGE PO PRN (04:47)
[2024-03-24 06:33] LABS: Hematocrit 39.9 % (34.1-44.9); Hemoglobin 12.9 g/dL (11.2-15.7); Mean Cell Volume 86.7 fL (80.0-100.0); Mean Corpuscular HGB Conc 32.3 g/dL (31.0-36.0); Mean Platelet Volume 9.2 fL (8.8-12.5); Platelet Count 327 K/mcL (140-440); Red Cell Distribution Width 14.3 % (11.5-14.5); WBC 12.9 K/mcL (4.5-11.0)
[2024-03-24 07:06] LABS: Blood Urea Nitrogen 6 mg/dL (8-23); Calcium 8.8 mg/dL (8.6-10.4); Carbon Dioxide 25 mmol/L (22-30); Chloride 99 mmol/L (96-108); Glomerular Filtration Rate 85; Glucose 98 mg/dL (70-105); Potassium 3.2 mmol/L (3.3-5.1); Sodium 135 mmol/L (133-145)
[2024-03-24] MEDS: DEXTROSE 5%-LR 1,000 ML IV SCH (22:14)
[2024-03-25 05:53] LABS: Basophils # (Auto) 0.02 K/mcL (0.00-0.30); Basophils % (Auto) 0.2 % (0.0-2.0); Eosinophils # (Auto) 0.67 K/mcL (0.00-0.70); Eosinophils % (Auto) 6.1 % (0.0-7.0); Hematocrit 43.1 % (34.1-44.9); Hemoglobin 13.6 g/dL (11.2-15.7); Lymphocytes # (Auto) 1.74 K/mcL (1.50-4.80); Lymphocytes % (Auto) 15.8 % (15.5-49.0); Mean Corpuscular HGB Conc 31.6 g/dL (31.0-36.0); Mean Platelet Volume 9.6 fL (8.8-12.5); Monocytes # (Auto) 0.87 K/mcL (0.10-0.90); Monocytes % (Auto) 7.9 % (1.0-12.0); Neutrophils % (Auto) 69.9 % (38.0-78.0); Platelet Count 277 K/mcL (140-440); RBC 4.84 M/mcL (3.59-5.38)
[2024-03-25 07:08] LABS: Blood Urea Nitrogen 4 mg/dL (8-23); Calcium 9.1 mg/dL (8.6-10.4); Carbon Dioxide 19 mmol/L (22-30); Chloride 101 mmol/L (96-108); Glomerular Filtration Rate 90; Glucose 112 mg/dL (70-105); Potassium 3.1 mmol/L (3.3-5.1); Sodium 136 mmol/L (133-145)
[2024-03-25] MEDS: HEPARIN 5,000 UNIT/ML VIAL SQ SCH (10:17)
[2024-03-25] MEDS: BISACODYL 10 MG SUPP.RECT PR SCH (20:42)
[2024-03-26 06:25] LABS: Hematocrit 40.8 % (34.1-44.9); Hemoglobin 13.6 g/dL (11.2-15.7); Mean Cell Volume 84.1 fL (80.0-100.0); Mean Corpuscular HGB Conc 33.3 g/dL (31.0-36.0); Mean Platelet Volume 8.9 fL (8.8-12.5); Platelet Count 350 K/mcL (140-440); RBC 4.85 M/mcL (3.59-5.38); Red Cell Distribution Width 13.6 % (11.5-14.5)
[2024-03-26 06:44] LABS: Blood Urea Nitrogen 4 mg/dL (8-23); Calcium 9.3 mg/dL (8.6-10.4); Carbon Dioxide 27 mmol/L (22-30); Chloride 98 mmol/L (96-108); Glomerular Filtration Rate 90; Glucose 119 mg/dL (70-105); Potassium 2.6 mmol/L (3.3-5.1); Sodium 136 mmol/L (133-145)
[2024-03-26] MEDS: POTASSIUM CHLORIDE 10 MEQ/100 ML BAG IV SCH (09:07)
[2024-03-26] MEDS: DEXTROSE 5%-NS W/20MEQ KCL 1,000 ML IV SCH (12:01)
[2024-03-27 06:09] LABS: Basophils # (Auto) 0.03 K/mcL (0.00-0.30); Basophils % (Auto) 0.3 % (0.0-2.0); Eosinophils # (Auto) 0.91 K/mcL (0.00-0.70); Eosinophils % (Auto) 8.6 % (0.0-7.0); Hematocrit 37.6 % (34.1-44.9); Hemoglobin 12.4 g/dL (11.2-15.7); Lymphocytes # (Auto) 1.78 K/mcL (1.50-4.80); Lymphocytes % (Auto) 16.9 % (15.5-49.0); Mean Cell Volume 84.5 fL (80.0-100.0); Mean Platelet Volume 8.8 fL (8.8-12.5); Monocytes # (Auto) 0.88 K/mcL (0.10-0.90); Monocytes % (Auto) 8.4 % (1.0-12.0); Neutrophils % (Auto) 65.6 % (38.0-78.0); Platelet Count 332 K/mcL (140-440); RBC 4.45 M/mcL (3.59-5.38); Red Cell Distribution Width 13.7 % (11.5-14.5); WBC 10.5 K/mcL (4.5-11.0)
[2024-03-27 06:32] LABS: Blood Urea Nitrogen 5 mg/dL (8-23); Calcium 8.8 mg/dL (8.6-10.4); Carbon Dioxide 25 mmol/L (22-30); Chloride 102 mmol/L (96-108); Glomerular Filtration Rate 90; Glucose 126 mg/dL (70-105); Potassium 2.7 mmol/L (3.3-5.1); Sodium 137 mmol/L (133-145)
[2024-03-27] MEDS: POTASSIUM CHLORIDE 10 MEQ/100 ML BAG IV SCH (08:25)
[2024-03-27] MEDS: DEXTROSE 5%-NS W/20MEQ KCL 1,000 ML IV SCH (11:34)
[2024-03-27] MEDS ORDERED: HYDROcodone/APAP 5/325MG TABLET PO PRN (14:42)
[2024-03-27] MEDS ORDERED: ACETAMINOPHEN 650 MG/65 ML BAG IV PRN (22:00)
[2024-03-27] MEDS: SIMVASTATIN 40 MG TABLET PO SCH (22:01)
[2024-03-28 06:12] LABS: Hematocrit 37.6 % (34.1-44.9); Hemoglobin 12.4 g/dL (11.2-15.7); Mean Cell Volume 84.3 fL (80.0-100.0); Mean Platelet Volume 8.7 fL (8.8-12.5); Platelet Count 351 K/mcL (140-440); RBC 4.46 M/mcL (3.59-5.38); Red Cell Distribution Width 13.8 % (11.5-14.5); WBC 8.5 K/mcL (4.5-11.0)
[2024-03-28 06:41] LABS: Blood Urea Nitrogen 4 mg/dL (8-23); Calcium 9.1 mg/dL (8.6-10.4); Carbon Dioxide 22 mmol/L (22-30); Chloride 103 mmol/L (96-108); Glomerular Filtration Rate 85; Glucose 107 mg/dL (70-105); Potassium 3.2 mmol/L (3.3-5.1); Sodium 137 mmol/L (133-145)
[2024-03-28] MEDS: LEVOTHYROXINE 88 MCG TABLET PO SCH (07:23)
[2024-03-29] MEDS: LISINOPRIL 10 MG TABLET PO SCH (09:22)
== END 2024-03-29 10:50 | disposition home or self-care (01) | DRG 330 ==
LOC: SUR 06:09 → MEDSUR 12:40
PROVIDERS: ADMIT Surgery Surgical Critical Care; ATTEND Surgery Surgical Critical Care